=== PATIENT | female | born 1980 | race Caucasian/White ===

== ENCOUNTER 2020-06-18 21:39 | Observation (INO) | payer BC, OTHER, SELFPAY ==
[2020-06-18] MEDS ORDERED: Ziprasidone 20 MG CAP ONE (22:14)
[2020-06-18 22:22] LABS: #Basophils 0.1 thou/uL (0.0-0.2); #Lymphocytes 2.6 thou/uL (1.20-3.40); #Neutrophils 14.5 thou/uL (1.40-6.50); %Basophils 0.6 % (0.0-1.0); %Eosinophils 0.3 % (0.0-10.0); %Lymphocytes 13.6 % (21.0-51.0); %Monocytes 10.5 % (0.0-10.0); Hemoglobin 14.2 g/dL (12.0-16.0); Mean Corpuscular HGB CONC 35.4 g/dL (32.0-36.0); Mean Corpuscular Hemoglobin 31.9 pg (27.0-31.0); Mean Corpuscular Volume 90.2 fL (78.0-98.0); Mean Platelet Volume 8.1 fL (7.4-10.4); Platelet Count 317 thou/uL (130-400); RBC Distribution Width 11.3 % (11.5-14.5); Red Blood Cell (RBC) Count 4.44 mill/uL (4.20-5.40); White Blood Cell (WBC) Count 19.3 thou/uL (4.8-10.8)
[2020-06-18 22:42] LABS: Acetaminophen Less than 6.0 mcg/mL (10.0-30.0); Alcohol Less than 10 mg/dL (Less than 10); Salicylate Less than 8.0 mg/dL (15.0-30.0)
[2020-06-18 22:43] LABS: ALT (SGPT) 25 U/L (8-55); AST (SGOT) 31 U/L (5-34); Albumin 4.8 g/dL (3.5-5.0); Alkaline Phosphatase 64 U/L (40-110); Anion Gap 14 mmol/L (10-20); BUN (Urea Nitrogen) 5 mg/dL (7.0-18.7); Bilirubin, Total 0.4 mg/dL (0.2-1.2); Calc. Creatinine Clearance 0 mL/min (70-130); Calcium 9.2 mg/dL (7.8-10.44); Carbon Dioxide 23 mmol/L (22-29); Chloride 93 mmol/L (98-107); Estimated GFR-MDRD 86; Globulin 2.4 g/dL (2.4-3.5); Glucose 118 mg/dL (70-105); Potassium 3.4 mmol/L (3.5-5.1); Protein, Total 7.2 g/dL (6.0-8.3); Sodium 127 mmol/L (136-145)
[2020-06-18 22:52] LABS: Bilirubin Negative (Negative); Blood, Urine Negative (Negative); Clarity Clear (Clear); Glucose, Urine (Dipstick) Normal (Negative); Ketone, Urine 60 mg/dL (Negative); Leukocyte Negative Leu/uL (Negative); Nitrite Negative (Negative); Protein, Urine (Dipstick) Negative (Neg-Trace); Specific Gravity, Urine 1.007 (1.002-1.036); Urobilinogen Normal mg/dL (Less than 2)
[2020-06-18 22:57] LABS: Pregnancy Test - Urine (BHCG) Negative (Negative); Pregu Control Background? CLEAR/WHITE (CLR/WHITE); Pregu Control Bar Appear? YES (CONTROL BAR); Specific Gravity 1.007 (1.002-1.036)
[2020-06-18 23:03] LABS: Cocaine Metabolite Screen Not Detected (NotDetected); Medtox Reader # READER 4; Phencyclidine (PCP) Not Detected (NotDetected); THC/Cannabinoid Screen Detected (NotDetected)
[2020-06-18 23:04] LABS: Amphetamine Not Detected (NotDetected); Barbiturates Screen Not Detected (NotDetected); Benzodiazepine Screen Not Detected (NotDetected); Medtox Control Line Valid? VALID (VALID); Methadone Not Detected (NotDetected); Methamphetamine Not Detected (NotDetected); Opiate Screen Not Detected (NotDetected); Oxycodone Screen Not Detected (NotDetected); Tricyclic Screen Not Detected (NotDetected)
[2020-06-19] MEDS ORDERED: Sodium Chloride 0.9% 1,000 ML IV SCH (01:00)
--- NOTE | 2020-06-19 01:55 | PDOC.EVN ---
Event Note - Event Note Event Note: [id number] HP dictated
--- NOTE | 2020-06-19 02:17 | HP ---
CHIEF COMPLAINT: Altered mental status. HISTORY OF PRESENT ILLNESS: Ms. Silveira is a 39-year-old female, with no significant past medical history, except for hypothyroidism which is not requiring treatment, presented to the emergency room with bizarre behavior. Patient was very altered, restless, agitated, acting in a bizarre way. In the emergency room, patient has to be sedated and was given Geodon. Currently, patient is sleeping. Workup in the emergency room, patient was found to have a sodium of 127. Otherwise, other workup is unremarkable. As per patient's , patient has a history in the past of hypothyroidism, but she followed with a physician lately and she was told that she does not require any medications. Patient currently does not take any medications, except for [id number] testosterone preparation? as per her . Other than that, no other significant history. Workup in the emergency room, including urine drug screen showed which was positive for THC. Patient was started on IV fluids, patient is being admitted to the hospital for further management. PAST MEDICAL HISTORY: 1. Hypothyroidism? 2. Hypertension, not on treatment. PAST SURGICAL HISTORY: Spinal surgery. PAST PSYCHIATRIC HISTORY: Anxiety, bipolar disorder, depression, ?need to be verified. SOCIAL HISTORY: Patient currently uses drugs and abuses marijuana. FAMILY HISTORY: Reviewed, noncontributory. ALLERGIES: NO KNOWN ALLERGIES. HOME MEDICATIONS: Please see home medication reconciliation form for updated medications. REVIEW OF SYSTEMS: Unable to obtain as patient is currently sedated, just received Geodon. PHYSICAL EXAMINATION: VITAL SIGNS: Blood pressure is 158/90, pulse is 107, respiratory rate is 20, temperature 98.7, and oxygen saturation 100% on room air. HEAD AND NECK: Normocephalic, atraumatic. Neck is supple. No JVD. CHEST: Fair bilateral entry. HEART: S1, S2. Regular. ABDOMEN: Soft. Bowel sounds present. NEUROLOGIC: Unable to assess as patient is currently sedated. PSYCH: Unable to assess. EXTREMITIES: No clubbing or cyanosis. LABORATORY DATA: As mentioned above in the history of present illness. ASSESSMENT AND PLAN: 1. Acute encephalopathy. Patient presented with bizarre behavior. 2. Hyponatremia? Acute? 3. History of bipolar disorder, need to be verified. 4. Marijuana use. PLAN: 1. Admit. 2. Close monitoring. We will place a sitter one-to-one. 3. We will start the patient on IV NS, reassess in a.m. 4. To consult Psych in a.m., if the patient is medically cleared. 5. DVT prophylaxis as appropriate. 6. Expected length of stay, at least 1 midnight, if patient is stable and safe to be discharged. Job ID: [id number]
[2020-06-19 02:40] LABS: #Basophils 0.1 thou/uL (0.0-0.2); #Lymphocytes 3.1 thou/uL (1.20-3.40); #Monocytes 1.4 thou/uL (0.11-0.59); #Neutrophils 9.8 thou/uL (1.40-6.50); %Basophils 0.8 % (0.0-1.0); %Eosinophils 0.3 % (0.0-10.0); %Lymphocytes 21.4 % (21.0-51.0); %Monocytes 9.7 % (0.0-10.0); %Neutrophils 67.9 % (42.0-75.0); Hemoglobin 13.7 g/dL (12.0-16.0); Mean Corpuscular HGB CONC 35.9 g/dL (32.0-36.0); Mean Corpuscular Hemoglobin 32.5 pg (27.0-31.0); Mean Corpuscular Volume 90.6 fL (78.0-98.0); Mean Platelet Volume 8.4 fL (7.4-10.4); Platelet Count 277 thou/uL (130-400); RBC Distribution Width 11.2 % (11.5-14.5); White Blood Cell (WBC) Count 14.4 thou/uL (4.8-10.8)
[2020-06-19 03:57] LABS: Anion Gap 16 mmol/L (10-20); BUN (Urea Nitrogen) 4 mg/dL (7.0-18.7); Calc. Creatinine Clearance 0 mL/min (70-130); Calcium 9.1 mg/dL (7.8-10.44); Carbon Dioxide 19 mmol/L (22-29); Chloride 97 mmol/L (98-107); Estimated GFR-MDRD Greater than 90; Glucose 103 mg/dL (70-105); Potassium 3.4 mmol/L (3.5-5.1); Sodium 129 mmol/L (136-145)
[2020-06-19 04:00] VITALS: BMI 29.7
[2020-06-19] MEDS ORDERED: Cepastat Lozenges 1 LOZ PO PRN (07:54)
[2020-06-19] MEDS ORDERED: Acetaminophen 500 MG TAB PO PRN (07:54)
[2020-06-19] MEDS ORDERED: Calcium Carbonate 500 MG ChewTAB PO PRN (07:54)
[2020-06-19] MEDS ORDERED: hydrALAZINE 20 MG/ML VIAL SLOW IVP PRN (07:54)
[2020-06-19] MEDS ORDERED: Senokot S 8.6-50 MG TAB PO PRN (07:54)
[2020-06-19] MEDS ORDERED: Ondansetron ODT 4 MG TAB PO PRN (07:54)
[2020-06-19] MEDS ORDERED: Loratadine 10 MG TAB PO PRN (07:54)
[2020-06-19] MEDS ORDERED: Loperamide HCl 2 MG CAP PO PRN (07:54)
[2020-06-19] MEDS ORDERED: Sodium Chloride 0.65% Nasal 44 ML BOT EA NARE PRN (07:54)
[2020-06-19] MEDS ORDERED: Zolpidem Tartrate 5 MG TAB PO PRN (07:54)
[2020-06-19] MEDS ORDERED: Ondansetron PF 4 MG/2 ML Vial IVP PRN (07:54)
[2020-06-19] MEDS ORDERED: HYDROcodone/Acetaminophen 5/325 mg Tablet PO PRN (07:54)
[2020-06-19] MEDS ORDERED: Diabetic Tussin 200 MG/10 ML UDCUP PO PRN (07:54)
[2020-06-19] MEDS ORDERED: Acetaminophen 325 MG TAB PO PRN (07:58)
[2020-06-19] MEDS ORDERED: Potassium Chloride 20 MEQ TAB PO SCH (08:00)
[2020-06-19] MEDS: 1/2 NS w/KCL 20 mEq 1,000 ML IV SCH ×2 (09:37→20:03)
[2020-06-19 10:42] LABS: SARS-CoV-2 MS2 Positive; SARS-CoV-2 N Gene Negative; SARS-CoV-2 S Gene Negative; SARS-CoV-2 by NAA Not Detected (NotDetected); SARS-CoV-2 orf1ab Negative
--- NOTE | 2020-06-19 11:49 | PDOC.HOSPP ---
- Subjective Encounter Date: 06/19/20 Encounter Time: 10:00 Subjective: Patient seen and examined. No new complaints. No overnight events, patient feels anxious - Objective Vital Signs & Weight: Vital Signs (12 hours) Temp Pulse Resp BP BP Pulse Ox 06/19/20 11:35 98 F 91 18 143/83 H 97 06/19/20 09:35 99 06/19/20 07:50 98.3 F 96 18 144/96 H 99 06/19/20 03:20 98.1 F 65 16 148/95 H 97 Weight Weight 195 lb 11.2 oz Result Diagrams: 06/19/20 01:50 06/19/20 01:50 Hospitalist ROS - Review of Systems ENT: denies: ear pain, ear discharge, nose pain, nose discharge, nose congestion, mouth pain, mouth swelling, throat pain, throat swelling, other Respiratory: denies: cough, dry, shortness of breath, hemoptysis, SOB with excertion, pleuritic pain, sputum, wheezing, other Cardiovascular: denies: chest pain, palpitations, orthopnea, paroxysmal noc. dyspnea, edema, light headedness, other Gastrointestinal: denies: nausea, vomiting, abdominal pain, diarrhea, constipation, melena, hematochezia, other Genitourinary: denies: dysuria, frequency, incontinence, hematuria, retention, other Musculoskeletal: denies: neck pain, shoulder pain, arm pain, back pain, hand pain, leg pain, foot pain, other - Medication Medications: Active Medications Generic Name Dose Route Start Last Admin Trade Name Freq PRN Reason Stop Dose Admin Potassium Chloride/Sodium Chloride 1,000 mls @ 100 mls/hr 06/19/20 08:00 06/19/20 09:37 1/2 Ns W/Kcl 20 Meq IV 1,000 mls .Q10H MOHAN Administration Sodium Chloride 10 ml 06/19/20 09:00 06/19/20 09:38 Flush - Normal Saline 10 Ml Syringe IVF Not Given Q12HR MOHAN - Exam General Appearance: NAD, awake alert Eye: PERRL, anicteric sclera ENT: normocephalic atraumatic, no oropharyngeal lesions Neck: supple, symmetric, no JVD, no thyromegaly Heart: RRR, no murmur, no gallops, no rubs Respiratory: CTAB, no wheezes, no rales, no ronchi Gastrointestinal: soft, non-tender, non-distended, normal bowel sounds Extremities: no cyanosis, no clubbing, no edema Skin: normal turgor, no lesions Neurological: no focal deficits Musculoskeletal: normal tone, normal strength Psychiatric: normal affect, normal behavior Hosp A/P (1) Psychosis Status: Acute Qualifiers: Psychosis type: unspecified psychosis type Qualified Code(s): F29 - Unspecified psychosis not due to a substance or known physiological condition (2) Hyponatremia Code(s): E87.1 - HYPO-OSMOLALITY AND HYPONATREMIA Status: Acute (3) Hypokalemia Code(s): E87.6 - HYPOKALEMIA Status: Acute (4) Anxiety and depression Code(s): F41.9 - ANXIETY DISORDER, UNSPECIFIED; F32.9 - MAJOR DEPRESSIVE DISORDER, SINGLE EPISODE, UNSPECIFIED Status: Chronic (5) Cannabis abuse Code(s): F12.10 - CANNABIS ABUSE, UNCOMPLICATED Status: Chronic - Plan old records reviewed/req Change IV fluid to half-normal saline with KCl at 100 mL/h Replace potassium Repeat labs tomorrow Once patient is medically stable then will consider [facility] evaluation Add lorazepam for anxiety Medications reviewed and continued by symptomatic and supportive care
[2020-06-19] MEDS: Lorazepam 1 MG TAB PO PRN (15:35)
[2020-06-19] MEDS ORDERED: DULoxetine 60 MG CAP PO PRN (17:23)
[2020-06-20] MEDS: Lorazepam 1 MG TAB PO PRN ×2 (01:42→08:23)
[2020-06-20] MEDS: 1/2 NS w/KCL 20 mEq 1,000 ML IV SCH ×2 (04:37→05:20)
[2020-06-20 06:02] LABS: #Eosinphils 0.1 thou/uL (0.0-0.7); #Lymphocytes 3.2 thou/uL (1.20-3.40); #Monocytes 0.9 thou/uL (0.11-0.59); #Neutrophils 5.2 thou/uL (1.40-6.50); %Basophils 0.3 % (0.0-1.0); %Eosinophils 0.8 % (0.0-10.0); %Lymphocytes 33.8 % (21.0-51.0); %Neutrophils 55.1 % (42.0-75.0); Hemoglobin 13.6 g/dL (12.0-16.0); Mean Corpuscular HGB CONC 33.4 g/dL (32.0-36.0); Mean Corpuscular Hemoglobin 31.3 pg (27.0-31.0); Mean Corpuscular Volume 93.7 fL (78.0-98.0); Mean Platelet Volume 8.1 fL (7.4-10.4); Platelet Count 233 thou/uL (130-400); RBC Distribution Width 11.6 % (11.5-14.5); Red Blood Cell (RBC) Count 4.33 mill/uL (4.20-5.40); White Blood Cell (WBC) Count 9.4 thou/uL (4.8-10.8)
[2020-06-20 06:23] LABS: Anion Gap 14 mmol/L (10-20); BUN (Urea Nitrogen) Less than 4 mg/dL (7.0-18.7); Calc. Creatinine Clearance 153 mL/min (70-130); Calcium 8.5 mg/dL (7.8-10.44); Carbon Dioxide 17 mmol/L (22-29); Chloride 106 mmol/L (98-107); Estimated GFR-MDRD Greater than 90; Glucose 95 mg/dL (70-105); Phosphorus 2.8 mg/dL (2.3-4.7); Potassium 4.3 mmol/L (3.5-5.1); Sodium 133 mmol/L (136-145)
--- NOTE | 2020-06-20 10:45 | PDOC.HOSPP ---
- Subjective Encounter Date: 06/20/20 Encounter Time: 08:40 Subjective: Patient seen and examined. No new complaints. No overnight events - Objective Vital Signs & Weight: Vital Signs (12 hours) Temp Pulse Resp BP Pulse Ox 06/20/20 08:05 98.4 F 89 12 136/86 100 06/20/20 04:00 98.1 F 72 20 129/98 H 99 Weight Admit Weight 195 lb 11.2 oz Weight 195 lb 11.2 oz I&O: 06/19/20 06/20/20 06/21/20 06:59 06:59 06:59 Intake Total 1390 Balance 1390 Result Diagrams: 06/20/20 05:33 06/20/20 05:33 Hospitalist ROS - Review of Systems ENT: denies: ear pain, ear discharge, nose pain, nose discharge, nose congestion, mouth pain, mouth swelling, throat pain, throat swelling, other Respiratory: denies: cough, dry, shortness of breath, hemoptysis, SOB with excertion, pleuritic pain, sputum, wheezing, other Cardiovascular: denies: chest pain, palpitations, orthopnea, paroxysmal noc. dyspnea, edema, light headedness, other Gastrointestinal: denies: nausea, vomiting, abdominal pain, diarrhea, constipation, melena, hematochezia, other Genitourinary: denies: dysuria, frequency, incontinence, hematuria, retention, other Musculoskeletal: denies: neck pain, shoulder pain, arm pain, back pain, hand pain, leg pain, foot pain, other - Medication Medications: Active Medications Generic Name Dose Route Start Last Admin Trade Name Freq PRN Reason Stop Dose Admin Duloxetine HCl 60 mg 06/19/20 17:23 06/19/20 20:24 Duloxetine 60 Mg Cap PO 60 mg HSPRN PRN Administration .ANXIETY Potassium Chloride/Sodium Chloride 1,000 mls @ 100 mls/hr 06/19/20 08:00 06/20/20 05:20 1/2 Ns W/Kcl 20 Meq IV 1,000 mls .Q10H MOHAN Administration Lorazepam 1 mg 06/19/20 11:47 06/20/20 08:23 Lorazepam 1 Mg Tab PO 1 mg Q4H PRN Administration Anxiety/Agitation Ondansetron HCl 4 mg 06/19/20 07:54 10/27/20 05:19 Ondansetron Pf 4 Mg/2 Ml Vial IVP 4 mg Q6H PRN Administration Nausea/Vomiting Sodium Chloride 10 ml 06/19/20 09:00 06/20/20 08:36 Flush - Normal Saline 10 Ml Syringe IVF Not Given Q12HR MOHAN - Exam General Appearance: NAD, awake alert Eye: PERRL, anicteric sclera ENT: normocephalic atraumatic, no oropharyngeal lesions Neck: symmetric, no JVD, no thyromegaly Heart: RRR, no murmur, no gallops, no rubs Respiratory: CTAB, no wheezes, no rales, no ronchi Gastrointestinal: soft, non-tender, non-distended, normal bowel sounds Extremities: no clubbing, no edema, 1+ LE edema Skin: normal turgor, no lesions Neurological: no focal deficits Musculoskeletal: normal tone, normal strength Psychiatric: normal affect, normal behavior Hosp A/P (1) Psychosis Status: Acute Qualifiers: Psychosis type: schizoaffective disorder Schizoaffective disorder type: bipolar Qualified Code(s): F25.0 - Schizoaffective disorder, bipolar type (2) Hyponatremia Code(s): E87.1 - HYPO-OSMOLALITY AND HYPONATREMIA Status: Acute (3) Hypokalemia Code(s): E87.6 - HYPOKALEMIA Status: Acute (4) Anxiety and depression Code(s): F41.9 - ANXIETY DISORDER, UNSPECIFIED; F32.9 - MAJOR DEPRESSIVE DISORDER, SINGLE EPISODE, UNSPECIFIED Status: Chronic (5) Cannabis abuse Code(s): F12.10 - CANNABIS ABUSE, UNCOMPLICATED Status: Chronic - Plan old records reviewed/req, plan discussed w/ family Patient is medically stable for discharge [facility] evaluation Discussed with the patient's Patient will need outpatient psychiatry follow-up for treatment plan.
[2020-06-20 12:48] VITALS: BP 132/81; TEMP 98.5
--- NOTE | 2020-06-21 09:58 | DIS ---
DATE OF ADMISSION: 06/19/2020 DATE OF DISCHARGE: 06/20/2020 PRIMARY CARE PHYSICIAN: [facility] Call admission. DISCHARGE DISPOSITION: Home. PRIMARY DISCHARGE DIAGNOSES: 1. Hyponatremia and hypokalemia, corrected. 2. Leukocytosis, resolved. 3. Cannabis abuse. 4. Schizoaffective disorder, bipolar type. SECONDARY DISCHARGE DIAGNOSES: Schizoaffective disorder, bipolar type. PRIMARY PROCEDURE/OPERATION: None. RADIOLOGICAL INVESTIGATION: None. SIGNIFICANT LABORATORY DATA: WBC 9.4, hemoglobin 13.6, and platelets 233. Sodium 133, potassium 4.3, BUN 4, creatinine 0.69. Electrolytes normal. LFTs normal. TSH normal. Urine drug screen positive for cannabinoids. Urinalysis normal. COVID-19 negative. DISCHARGE MEDICATIONS: 1. Melatonin 10 mg p.o. at bedtime. 2. Cymbalta 60 mg p.o. at bedtime. CONTRAINDICATIONS: None. CODE STATUS: Full code. INPATIENT MILITARY PILOT: ERUM. TEST RESULTS PENDING ON DISCHARGE: None. ALLERGIES: GADOLINIUM CONTRAST. DISCHARGE PLAN: Post hospital, the patient will follow up with primary care physician in 1 week. The patient will follow up with a psychiatrist and [facility] as instructed. HOSPITAL COURSE: A 39-year-old female who has underlying psychiatric problem who was admitted by Dr. Perrin. Please see his H and P for further details. The patient was having bizarre behavior. Her presentation and based on history, she has psychiatric problem which is consistent with schizoaffective disorder, bipolar type. She had abnormal laboratory parameters with leukocytosis, hyponatremia, hypokalemia, all resolved with IV fluid. [facility] evaluated this patient. The patient will follow up with them as an outpatient basis. Psychiatric medication, we will defer to psychiatrist after a followup visit. The patient is medically stable for discharge today. Job ID: [id number]
== END 2020-06-20 12:58 | disposition home or self-care (01) ==
LOC: ERS 21:39 → EEVIPCON 21:39 → T4-A 06-19 00:38
PROVIDERS: ADMIT Internal Medicine; ATTEND Internal Medicine
DX: E87.1 Hypo-osmolality and hyponatremia (principal); E87.6 Hypokalemia; G93.40 Encephalopathy, unspecified; D72.829 Elevated white blood cell count, unspecified; F12.10 Cannabis abuse, uncomplicated; F25.0 Schizoaffective disorder, bipolar type; F41.9 Anxiety disorder, unspecified; Z79.899 Other long term (current) drug therapy; Z91.041 Radiographic dye allergy status
CPT/HCPCS: 36415; 80048; 80053; 80306; 80307; 81003; 81025; 83735; 84100; 84443; 85025; 87635; 96361; 96374; 99285; G0378; J2405; J3480; U0003

== ENCOUNTER 2020-06-23 14:21 | Emergency (ER) | payer SELFPAY ==
[2020-06-23 15:12] LABS: #Basophils 0.1 thou/uL (0.0-0.2); #Lymphocytes 2.4 thou/uL (1.20-3.40); #Monocytes 1.1 thou/uL (0.11-0.59); #Neutrophils 7.8 thou/uL (1.40-6.50); %Basophils 0.8 % (0.0-1.0); %Eosinophils 0.3 % (0.0-10.0); %Lymphocytes 20.9 % (21.0-51.0); %Monocytes 9.3 % (0.0-10.0); %Neutrophils 68.7 % (42.0-75.0); Mean Corpuscular HGB CONC 34.8 g/dL (32.0-36.0); Mean Corpuscular Hemoglobin 31.3 pg (27.0-31.0); Mean Corpuscular Volume 89.9 fL (78.0-98.0); Platelet Count 328 thou/uL (130-400); RBC Distribution Width 11.4 % (11.5-14.5); Red Blood Cell (RBC) Count 4.81 mill/uL (4.20-5.40); White Blood Cell (WBC) Count 11.4 thou/uL (4.8-10.8)
[2020-06-23 15:37] LABS: Acetaminophen Less than 6.0 mcg/mL (10.0-30.0); Alcohol Less than 10 mg/dL (Less than 10); Salicylate Less than 8.0 mg/dL (15.0-30.0)
[2020-06-23 15:39] LABS: ALT (SGPT) 24 U/L (8-55); AST (SGOT) 22 U/L (5-34); Albumin 4.9 g/dL (3.5-5.0); Alcohol Less than 10 mg/dL (Less than 10); Alkaline Phosphatase 66 U/L (40-110); Anion Gap 18 mmol/L (10-20); BUN (Urea Nitrogen) 4 mg/dL (7.0-18.7); Bilirubin, Total 0.4 mg/dL (0.2-1.2); CK (CPK) 221 U/L (29-168); Calc. Creatinine Clearance 0 mL/min (70-130); Calcium 9.8 mg/dL (7.8-10.44); Carbon Dioxide 20 mmol/L (22-29); Chloride 96 mmol/L (98-107); Estimated GFR-MDRD Greater than 90; Globulin 2.5 g/dL (2.4-3.5); Glucose 102 mg/dL (70-105); Potassium 3.4 mmol/L (3.5-5.1); Protein, Total 7.4 g/dL (6.0-8.3); Sodium 131 mmol/L (136-145)
[2020-06-23 16:09] LABS: Bilirubin Negative (Negative); Blood, Urine Negative (Negative); Clarity Clear (Clear); Glucose, Urine (Dipstick) Normal (Negative); Ketone, Urine 10 mg/dL (Negative); Leukocyte Negative Leu/uL (Negative); Nitrite Negative (Negative); Protein, Urine (Dipstick) Negative (Neg-Trace); Specific Gravity, Urine 1.012 (1.002-1.036); Urobilinogen Normal mg/dL (Less than 2); pH, Urine 7.5 (5.0-9.0)
[2020-06-23 16:11] LABS: Pregnancy Test - Urine (BHCG) Negative (Negative); Pregu Control Background? CLEAR/WHITE (CLR/WHITE); Pregu Control Bar Appear? YES (CONTROL BAR); Specific Gravity 1.012 (1.002-1.036)
[2020-06-23 16:21] LABS: Medtox Reader # READER 4
[2020-06-23 16:22] LABS: Amphetamine Not Detected (NotDetected); Barbiturates Screen Not Detected (NotDetected); Benzodiazepine Screen Not Detected (NotDetected); Cocaine Metabolite Screen Not Detected (NotDetected); Medtox Control Line Valid? VALID (VALID); Methadone Not Detected (NotDetected); Methamphetamine Not Detected (NotDetected); Opiate Screen Not Detected (NotDetected); Oxycodone Screen Not Detected (NotDetected); Phencyclidine (PCP) Not Detected (NotDetected); THC/Cannabinoid Screen Detected (NotDetected); Tricyclic Screen Not Detected (NotDetected)
[2020-06-23] MEDS ORDERED: Lorazepam 2 MG/ML VIAL ONE (20:25)
--- NOTE | 2020-07-01 13:13 | EKG ---
Test Reason : Blood Pressure : / mmHG Vent. Rate : 104 BPM Atrial Rate : 104 BPM P-R Int : 136 ms QRS Dur : 090 ms QT Int : 352 ms P-R-T Axes : 071 039 043 degrees QTc Int : 462 ms Sinus tachycardia Possible Left atrial enlargement Borderline ECG Confirmed by LUISA RUFFIN DO ([id number]), editor newspaper TONY MICHELLE ([id number]) on 07/01/2020 1:12:59 PM Referred By: Confirmed By:LUISA RUFFIN DO
== END 2020-06-24 08:30 ==
LOC: ERS 14:21
DX: F23 Brief psychotic disorder (principal); J45.909 Unspecified asthma, uncomplicated; E03.9 Hypothyroidism, unspecified; E78.5 Hyperlipidemia, unspecified; I10 Essential (primary) hypertension; F31.9 Bipolar disorder, unspecified; F41.9 Anxiety disorder, unspecified; Z79.899 Other long term (current) drug therapy
CPT/HCPCS: 80053; 80306; 80307; 81003; 81025; 82550; 84443; 85025; 93005; 96374; J2060